=== PATIENT | male | born 1950 | race Caucasian/White ===

== ENCOUNTER → 2017-05-21 | Outpatient (CLI) | payer MEDICARE, BC ==
[~2017-05-21] MED LIST: ALLEGRA180 MG PO; ASPIRIN EC81 MG PO; CPAP INH; FISH OIL 1,0001 EAC3 PO; FLAX SEED OIL1000 MG PO; GLUCOPHAGE XR500 M1 PO; HYTRIN **IA 9/2 MG PO; IRBESARTAN-HCT1 EAC1 PO; MULTI VITAMIN1 EACH PO; TYLENOL WITH C1 EACH; TYLENOL/COD#3**1 TAB PO; ZYRTEC10 MG PO
== END | disposition disaster alternative care site (69) ==
LOC: GRAD 08:12
DX: N20.0 Calculus of kidney (principal)

== ENCOUNTER → 2017-06-11 | Day surgery (SDC) | payer MEDICARE, BC ==
[~2017-06-11] VITALS: Ht 172.7 cm; Wt 84.6 kg
--- NOTE | ~2017-06-11 | OR ---
PATIENT'S NAME: [facility] AGE: 66 Y [address] 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 POSTOPERATIVE DIAGNOSIS: Left nephrolithiasis. PROCEDURE PERFORMED: Left extracorporeal shock wave lithotripsy. ANESTHESIA: MAC. COMPLICATIONS: None. INDICATION FOR PROCEDURE: The patient is a 66-year-old male with a history of nephrolithiasis. Followup KUB reveals a 7 x 5 mm left lower pole stone without obstruction. The patient elected to proceed with ESWL. DETAILS OF PROCEDURE: After informed consent was obtained, the patient was taken to the operating room. A MAC anesthetic was applied, and he was placed in the supine position on the lithotripsy table. Fluoroscopy was used to target his stone. He received shocks starting at 14 kilovolts and gradually increased to 24 kilovolts. The patient received a total of 2600 shocks with good fragmentation of the stone. The patient tolerated the procedure well and was transferred to recovery room in good condition. MD MEGAN SHAY/modl /[id number] CC: Thomas Ordonez PA-C d: 06/11/17 1944 t: 07/03/17 1146, OPERATIVE SUMMARY
[2017-06-11 11:34] LABS: BASOPHIL # 0.1 K/uL (0.0-0.2); BASOPHIL % 1.2 %; EOSINOPHIL # 0.3 K/uL (0.0-0.5); EOSINOPHIL % 4.2 %; HEMATOCRIT 43.2 % (37.0-53.0); HEMOGLOBIN 15.2 g/dL (11.0-16.0); IMMATURE GRANULOCYTE % 0.3 %; LYMPHOCYTE # 1.4 K/uL (0.8-4.0); LYMPHOCYTE % 22.6 %; MCH 32.9 pg (27.0-34.0); MCHC 35.2 gm/dL (32.0-36.5); MCV 93.5 fl (83.0-98.0); MONOCYTE # 0.7 K/uL (0.0-1.0); MONOCYTE % 10.8 %; MPV 10.2 fl (9.4-12.4); NEUTROPHIL # (ANC) 3.7 K/uL (1.4-9.0); NEUTROPHIL % 60.9 %; NRBC % 0 /100WBC (0-0.00); PLATELET COUNT 221 K/uL (150-450); RBC 4.62 M/uL (3.50-5.50); RDW-CV 12.6 % (11.9-14.6)
[2017-06-11 11:54] LABS: ANION GAP 9.9 (10.0-19.0); CALCIUM 8.8 mg/dL (8.5-10.5); POTASSIUM 3.9 mMol/L (3.7-5.1); TOTAL BILIRUBIN 1.3 mg/dL (0.0-1.5); TOTAL PROTEIN 7.8 g/dL (6.0-8.4)
== END | disposition disaster alternative care site (69) ==
LOC: GPOC 06-04 11:00 → GSDC 07:00
PROVIDERS: Urology
PROC: 0TF4XZZ Fragmentation in Left Kidney Pelvis, External Approach (ICD-10-PCS; principal; 2017-06-11)
DX: N20.0 Calculus of kidney (principal); M19.90 Unspecified osteoarthritis, unspecified site; E11.9 Type 2 diabetes mellitus without complications; I10 Essential (primary) hypertension; J45.909 Unspecified asthma, uncomplicated; G47.30 Sleep apnea, unspecified; Z98.890 Other specified postprocedural states; Z79.82 Long term (current) use of aspirin; Z79.899 Other long term (current) drug therapy
CPT/HCPCS: J1956; J2001; J7030

== ENCOUNTER → 2017-07-02 | Outpatient (CLI) | payer MEDICARE, BC | END | disposition disaster alternative care site (69) | LOC: GRAD 07-01 12:30 | DX: N20.0 Calculus of kidney (principal) ==